=== PATIENT | female | born 2000 | race Caucasian/White ===

== ENCOUNTER 2020-04-21 14:55 | Outpatient (CLI) | payer MEDICAID, SELFPAY ==
--- NOTE | 2020-04-21 15:00 | USCV_ITS ---
Flor Cruz Age: 20 Gender: F : 2000 Exam Date: 04/21/2020 15:16 Ordering Phys: Orquidea Naqvi MD ([email or web address]) Technologist: Miguel Angel Kim Exam Location: [facility] [place] Indication: MVP BP: 120 / 70 HR: 93 Rhythm: Sinus Technical Quality: Excellent MEASUREMENTS (Male / Female) Normal Values 2D ECHO LV Diastolic Diameter PLAX 4.7 cm 4.2 - 5.9 / 3.9 - 5.3 cm LV Systolic Diameter PLAX 3.4 cm IVS Diastolic Thickness 1.1 cm 0.6 - 1.0 / 0.6 - 0.9 cm IVS Systolic Thickness 1.2 cm LVPW Diastolic Thickness 0.9 cm 0.6 - 1.0 / 0.6 - 0.9 cm LVPW Systolic Thickness 1.4 cm LVOT Diameter 2.0 cm LV Ejection Fraction 2D Teich 52.8 % LV Ejection Fraction MOD 2C 63.8 % LV Ejection Fraction 2C AL 62.9 % LA Diameter 3.1 cm LA Width 3.1 cm LA Height 4.4 cm RA Width 2.4 cm RA Height 3.8 cm Aorta at Sinotubular Diameter 1.4 cm M-MODE LV Diastolic Diameter MM 4.6 cm 4.2 - 5.9 / 3.9 - 5.3 cm LV Systolic Diameter MM 3.3 cm LV Ejection Fraction MM Teich 52.7 % IVS Diastolic Thickness MM 1.1 cm 0.6 - 1.0 / 0.6 - 0.9 cm IVS Systolic Thickness MM 1.1 cm LVPW Diastolic Thickness MM 1.0 cm 0.6 - 1.0 / 0.6 - 0.9 cm LVPW Systolic Thickness MM 1.6 cm RV Diastolic Diameter MM 2.9 cm Aortic Annulus Diameter 3.1 cm LA Ao Ratio MM 1.0 MV E Point Septal Separation 1.1 cm DOPPLER AV Peak Velocity 118.0 cm/s LVOT Peak Velocity 102.0 cm/s AV Area Cont Eq vti 3.1 cm squared AV Area Cont Eq pk 2.9 cm squared MV Area PHT 6.5 cm squared Mitral E to A Ratio 1.4 MV E' Velocity 17.0 cm/s Mitral E to MV E' Ratio 5.2 Mitral E to LV E' Lateral Ratio 5.1 Mitral E to LV E' Septal Ratio 5.3 TR Peak Velocity 111.0 cm/s TR Peak Gradient 5.0 mmHg TV Peak E Velocity 92.0 cm/s Right Atrial Pressure 3.0 mmHg Pulmonary Artery Systolic Pressu 7.9 mmHg FINDINGS Left Ventricle Normal left ventricular size, systolic function and wall thickness, with no regional wall motion abnormalities. Left ventricular ejection fraction is estimated at 63 %. Normal diastolic function. Right Ventricle Normal right ventricular size and systolic function. Right Atrium Normal right atrial size. Left Atrium Normal left atrial size. Mitral Valve Mildly thickened mitral valve. There is mild prolapse of anterior mitral valve leaflet. No mitral valve stenosis. Trace mitral valve regurgitation. Aortic Valve Structurally normal trileaflet aortic valve. No aortic valve stenosis. No aortic valve regurgitation. Tricuspid Valve Structurally normal tricuspid valve. Trace tricuspid valve regurgitation. Pulmonic Valve Structurally normal pulmonic valve. Pericardium No pericardial effusion. Aorta Normal size aortic root and proximal ascending aorta. CONCLUSIONS 1. Normal left ventricular size, systolic function and wall thickness, with no regional wall motion abnormalities. Left ventricular ejection fraction is estimated at 63 %. Normal diastolic function. 2. There is mild prolapse of anterior mitral valve leaflet. No mitral valve stenosis. Trace mitral valve regurgitation. 3. No prior similar studies to compare. Orquidea Naqvi MD (Electronically Signed) Final Date: 23 April 2020 22:09 S
== END 2020-04-21 14:56 | disposition home or self-care (01) ==
LOC: US 14:58
PROVIDERS: Visit Provider Internal Medicine Cardiovascular Disease
DX: I34.1 Nonrheumatic mitral (valve) prolapse (principal)
CPT/HCPCS: 93306

== ENCOUNTER 2020-06-06 00:57 | Emergency (ER) | payer MEDICAID, SELFPAY ==
[2020-06-06 01:04] VITALS: BP 135/95; PULSE 87; RESP 18; TEMP 36.6; O2SAT 97; BMI 21.4
--- NOTE | 2020-06-06 01:59 | ED_ITS ---
HPI - Female Genitourinary General: Chief complaint: Urogenital-Female Stated complaint: vaginal bleeding, gave 06-02 Time Seen by Provider: 06/06/20 01:11 History of Present Illness: HPI Narrative: 20-year-old female patient presents to the emergency department with urogenital concern. Vaginal delivery [facility] days ago at [facility]. Reports received episiotomy repair on the right side. She states received sutures. She reports open area to the labia that has become more painful past 2 days. She reports pain to the area after urination, makes it burn . She denies fever or chills. Mother she reports concern she has an infection. MD elicited complaint: other (skin tear) Onset (ago): day(s) (4) Location of symptoms: external genitalia and vaginal Severity: moderate Female Urogenital Radiation: Non-Radiating Severity scale (1-10): 5 Quality of pain: sharp Consistency: intermittent Vaginal discharge: other (purulent) Vaginal bleeding: scant Exacerbating factors: urination Relieving factors: other (keeping the area dry) Associated symptoms: Reports no associated symptoms; Deny abdominal pain, headache(s) or nausea Treatment prior to arrival: none Sexual activity: No Patient : No Review of Systems General: Reports: 10 or more systems reviewed and unremarkable except in HPI and below Const: Denies: fever(s), chills or diaphoresis Eyes: Denies: blurry vision or eye redness ENMT: Denies: throat pain, dental pain or disequilibrium Card: Denies: chest pain, palpitations or irregular heart rhythm Resp: Denies: dyspnea, productive cough, non-productive cough or wheezing GI: Denies: abdominal pain, nausea or vomiting : Reports: vaginal bleeding; Denies: difficulty voiding, dysuria, urinary frequency, urinary urgency or hem aturia Musc: Denies: back pain, joint pain, muscle cramps or muscle weakness Skin/Breast: Reports: skin tenderness (left labia); Denies: rash or pruritus Neuro: Denies: headache(s), weakness in extremities or behavioral changes Psych: Denies: anxiety or depression Mihir/Lymph: Denies: easy bruising PFS ED PFSH: Medical History (Updated 06/06/20 @ 02:31 by LIANNA Lovett) MVP (mitral valve prolapse) Family History (Updated 12/31/19 @ 13:51 by Lilia Thompson RN) Other Cancer Diabetes Denies family history of Stroke Social History (Updated 12/31/19 @ 13:51 by Lilia Thompson RN) Smoking and tobacco status: never smoked Alcohol intake: never Physical Exam Const: COMMON NORMALS: no acute distress, patient oriented x3, healthy appearing and alert GENERAL APPEARANCE: cooperative, comfortable and well hydrated HENMT: COMMON NORMALS: normocephalic, Normal external nose present and moist oral mucous membranes HEAD & SCALP: normocephalic NOSE: Normal external nose present Eye: COMMON NORMALS: Equal, round and reactive pupils present and EOMs intact bilaterally GENERAL EYE: appearance normal, both eyes and all related structures PUPIL: Yes Equal, round and reactive pupils present Neck/C-Spine: COMMON NORMALS: full ROM and no lymphadenopathy GENERAL: Yes normal visual inspection and Yes trachea midline CERVICAL SPINE: Yes cervical ROM normal Lymph: LYMPHATIC: no lymphadenopathy noted Chest: COMMONS NORMALS: normal inspection of the chest Resp: COMMON NORMALS: normal respiratory effort and clear to auscultation bilaterally AUSCULTATION: clear to auscultation bilaterally Cardio: COMMON NORMALS: regular rhythm, S1 normal heart sound present and S2 normal heart sound present RHYTHM: regular rhythm HEART SOUNDS: S1 normal heart sound present and S2 normal heart sound present GI: COMMON NORMALS: Soft to palpation and non-tender INSPECTION: Yes normal to inspection PALPATION: Yes Soft to palpation : COMMON NORMALS: Yes no CVA tenderness BLADDER/KIDNEY EXAM: Yes no CVA tenderness EXTERNAL FEMALE EXAM: Yes normal appearance of the urethra, No Inguinal lymphadenopathy, Yes externally tender, Yes laceration (left lower labia minora, 2 cm horizontal, does not penetrate into the vaginal canal) and No urethral discharge SPECULUM EXAM - VAGINA: No foreign body, No laceration, No tissue present in vagina, Yes tenderness Lateral vaginal tenderness details: left Tenderness on left: left sidewall, Yes Vaginal discharge present (Serosanguineous) and No Vaginal ecchymosis OB/EXTERNAL & SPECULUM: no foreign bodies and no tissue noted in vagina GENITAL IMAGES (FEMALE): 1. 2 cm laceration present, bleeding not appreciated Back/Pelvis: COMMON NORMALS: no CVA tenderness and thoracic and lumbar spine normal to inspection Extremity: COMMON NORMALS: normal to inspection and capillary refill normal Neuro: COMMON NORMALS: patient oriented x3 and no focal motor deficits SENSORIUM/ORIENTATION: Yes alert Psych: COMMON NORMALS: mental status grossly normal, Normal thought process present and cooperative ACTIVITY/MOTOR BEHAVIOR: Yes appropriate eye contact THOUGHT PROCESS: Normal thought process present Skin: COMMON NORMALS: no rashes or lesions noted and turgor normal GENERAL SKIN EXAM: no rashes or lesions noted and turgor normal Course ED course: 20-year-old female patient presents to the emergency department with left labial laceration status post vaginal delivery 4 days prior. Labia was without erythema/edema. Tenderness noted to the touch. Repair of laceration not completed due to 4-day history. Plan to refer to [facility] for monitoring. Placed on clindamycin, patient is breast-feeding. Wound culture pending. She agrees to follow-up with [facility] [employer] [facility] for evaluation. Advised to return to the emergency department if she develops increased pain, fever or malodorous discharge. Vital Signs: Vital signs: Vital Signs Temperature 97.9 F 06/06/20 01:04 Pulse Rate 87 06/06/20 01:04 Respiratory Rate 18 06/06/20 01:04 Blood Pressure 135/95 06/06/20 01:04 Pulse Oximetry 97 06/06/20 01:04 Discharge Plan Discharge Patient Disposition: Home Clinical Impression: Obstetric vaginal laceration Qualifiers: Perineal laceration presence: unspecified whether perineal laceration present Qualified Code(s): O71.4 - Obstetric high vaginal laceration alone Condition: Stable Prescriptions: New clindamycin HCl 300 mg capsule 300 mg PO QID 7 Days Qty: 28 RF: 0 No Action prenat.vits,darshan,[id number] Tablet 1 tab PO DAILY RF: 0 Discharge Orders: Discharge Order (Routine); Ordered 06/06/20 Ordered By: Sharon Joy Discharge Diet: Usual diet Discharge Activity: Limit activity as instructed Patient Instructions: Vaginal Laceration during Childbirth Activity Restrictions/Additional Instructions: Cleanse area with peribottle several times daily, use warm water Avoid tub baths, may shower Take clindamycin until all gone, even if feeling better May use Dermoplast, [id number], spray to the area as needed for pain If area becomes dry and tender, may apply small amount of Vaseline to help with lubrication Referral for [facility] here in [place] has been sent to group social worker. They will contact you with an appointment for next week to evaluate vaginal laceration. Return to the emergency department if you develop increased pain, fever or worsening symptoms. Discharge Date/Time: 06/06/20 02:48 Coding Level of Care Code ED Cvir Tech for Ned Fwandreina Exam Comprehensive
[2020-06-06 02:47] VITALS: PULSE 72; RESP 16; O2SAT 99
--- NOTE | 2020-06-08 10:35 | DCPLANNER ---
condominium manager had message to schedule a follow up appointment for patient with [facility]. condominium manager called [facility], spoke with Agata, gave clinic patients information. condominium manager was told that patients information would be printed and reviewed. Clinic will call patient with appointment information.
--- NOTE | 2020-06-10 07:47 | DCPLANNER ---
Patient has a follow up appointment scheduled for Tuesday, June 16, 2020 at 3:[address] Granados. Clinic will call patient with appointment information.
--- NOTE | 2020-07-21 12:35 | DCPLANNER ---
Patient had a follow up appointment scheduled for 06.16.20 with [facility] - patient did not attend appointment.
== END 2020-06-06 02:48 | disposition home or self-care (01) ==
PROVIDERS: Emergency Provider Nurse Practitioner Family
DX: O71.4 Obstetric high vaginal laceration alone (principal)
CPT/HCPCS: 12345; 87070; 87075; 87205; 99282; E0352